=== PATIENT | female | born 1965 | race Caucasian/White ===

== ENCOUNTER 2017-08-30 06:56 | Emergency (ER) | payer OTHER ==
[~2017-08-30] VITALS: Ht 160 cm; Wt 65.0 kg
[2017-08-30 06:58] VITALS: BP 135/66; PULSE 95; RESP 16; TEMP 97.3; O2SAT 99
[2017-08-30] MEDS ORDERED: ORPHENADRINE INJ 60 MG/2 ML AMP IM ONE (07:30)
[2017-08-30] MEDS ORDERED: KETOROLAC TROMETHAMINE 60 MG/2 ML (IM) VIAL IM ONE (07:30)
[2017-08-30] MEDS ORDERED: ROBA500T PO (07:31)
[2017-08-30] MEDS ORDERED: IBUP-232 PO (07:31)
--- NOTE | 2017-08-30 07:31 | PD ---
HPI Chief Complaint: Back/ Neck Pain or Injury Time Seen by Provider: 07:14 Travel History International Travel<30 days: No Contact w/Intl Traveler<30days: No Traveled to known affect area: No History of Present Illness HPI 52-year-old female with history of low back pain for 20 years, presents to the emergency department for evaluation of exacerbation of pain over the last month. Patient states the pain is in her left lower back and radiates to her buttock and leg. She states it is a 10 out of 10, intermittently sharp, but constantly aching. She has not let her primary care provider know about this pain as it has been worsening over the last month. When she went to get out of bed today she states her left leg was severely painful and she was unable to stand on it. This resolved after about 45 minutes. The pain in her lower back still persisted she came to the emergency department. She denies any saddle paresthesia. She denies loss of bowel or bladder. Currently she is not having any weakness. She has no other symptoms to report. PFSH Past Medical History Heart Rhythm Problems: No Cardiac Catheterization: No Cardiovascular Problems: No High Cholesterol: No Congestive Heart Failure: No Diabetes: No Diminished Hearing: No Hypertension: No Neurologic: Yes (back and neck problems - numbness in rt arm) Myocardial Infarction: No Tetanus Vaccination: < 5 Years ?: Not Past Surgical History Appendectomy: Yes Section: Yes (X 1) Coronary Artery Bypass Graft: No Hysterectomy: Yes Social History Alcohol Use: Yes (rarly) Tobacco Use: No Substance Use: No Allergies-Medications (Allergen,Severity, Reaction): Coded Allergies: Fish Containing Products (Unverified Allergy, Severe, allergy tested injection site became red,swollen, 08/30/17) hydrocodone (Unverified Allergy, Mild, 08/30/17) sulfamethoxazole (Unverified Allergy, Mild, hives, 08/30/17) trimethoprim (Unverified Allergy, Mild, hives, 08/30/17) Reported Meds & Prescriptions Reported Meds & Active Scripts Active Ibuprofen 600 Mg Tab 600 Mg PO Q8H PRN Robaxin (Methocarbamol) 500 Mg Tab 500 Mg PO QID PRN Review of Systems Except as stated in HPI: all other systems reviewed are Neg Physical Exam Narrative GENERAL: Well-nourished female patient, ambulatory and in no acute distress SKIN: Focused skin assessment warm/dry. HEAD: Atraumatic. Normocephalic. EYES: Pupils equal and round. No scleral icterus. No injection or drainage. ENT: No nasal bleeding or discharge. Mucous membranes pink and moist. NECK: Trachea midline. No JVD. CARDIOVASCULAR: Regular rate and rhythm. No murmur appreciated. RESPIRATORY: No accessory muscle use. Clear to auscultation. Breath sounds equal bilaterally. GASTROINTESTINAL: Abdomen soft, non-tender, nondistended. Hepatic and splenic margins not palpable. MUSCULOSKELETAL: No obvious deformities. No clubbing. No cyanosis. No edema. 5. Strength equal bilateral lower extremities. Patient does have a positive straight leg on the left. Tenderness with palpation of the left sacroiliac joint. NEUROLOGICAL: Awake and alert. No obvious cranial nerve deficits. Motor grossly within normal limits. Normal speech. PSYCHIATRIC: Appropriate mood and affect; insight and judgment normal. Data Data Last Documented VS Vital Signs Date Time Temp Pulse Resp B/P (MAP) Pulse Ox O2 Delivery O2 Flow Rate FiO2 08/30/17 08:19 08/30/17 06:58 97.3 95 16 99 Room Air Orders Orders Ketorolac Inj (Toradol Inj) (08/30/17 07:30) Orphenadrine Inj (Norflex Inj) (08/30/17 07:30) Splint Or Brace Apply/Monitor (08/30/17 07:20) MDM Medical Decision Making Medical Screen Exam Complete: Yes Emergency Medical Condition: Yes Medical Record Reviewed: Yes Differential Diagnosis Lumbar strain versus discogenic pain versus radiculopathy Narrative Course 52-year-old female presents to emergency department for evaluation of low back pain. Patient appears without distress. Tenderness was to palpation over the left sacroiliac joint. Patient does have a positive straight leg on the left. No focal deficits or weakness. Patient is treated for pain and provided a quick draw back brace. She is comfortable in care, encouraged to contact her primary care provider today for follow-up, and return immediately with any acute worsening symptoms. Diagnosis Primary Impression: Sciatica of left side Referrals: Primary Care Physician Patient Instructions: General Instructions, Sciatica (ED) Additional Instructions: Ice and/or warm moist heat may help to alleviate symptoms Avoid activity that exacerbates pain Follow-up with a primary care provider Wear brace for support. Do not wear this at all times as it may weaken her core muscles, worsening her back pain Return immediately to the emergency department with any acute worsening symptoms Med/Other Pt SpecificInfo: Prescription(s) given Scripts Ibuprofen (Ibuprofen) 600 Mg Tab 600 MG PO Q8H Y for PAIN, #30 TAB 0 Refills Prov: Atiya Perez 08/30/17 Methocarbamol (Robaxin) 500 Mg Tab 500 MG PO QID Y for MUSCLE SPASM, #20 TAB 0 Refills Prov: Atiya Perez 08/30/17 Disposition: 01 DISCHARGE HOME Condition: Stable Atiya Perez Aug 30, 2017 07:31
== END 2017-08-30 08:22 | disposition home or self-care (01) ==
LOC: NEPK 06:56
DX: M54.42 Lumbago with sciatica, left side (principal)
CPT/HCPCS: 96372; 99284; J1885; J2360; L0627

== ENCOUNTER 2017-09-04 01:45 | Emergency (ER) | payer OTHER ==
[~2017-09-04] VITALS: Ht 160 cm; Wt 68.0 kg
[~2017-09-04 01:45] MED LIST: IBUP-232 PO; ROBA500T PO
[2017-09-04 01:47] VITALS: BP 142/79; PULSE 99; RESP 18; TEMP 98.3; O2SAT 100
[2017-09-04] MEDS ORDERED: SODIUM CHLORID 0.9% 500 ML INJ 500 ML IV ONE (02:30)
[2017-09-04] MEDS ORDERED: KETOROLAC TROMETHAMINE 30 MG/ML (IVP) VIAL IV PUSH ONE (02:30)
[2017-09-04] MEDS ORDERED: HYDROmorphone HCL PF 1 MG/ML VIAL IV PUSH ONE (02:30)
[2017-09-04] MEDS ORDERED: ONDANSETRON HCL 4 MG/2 ML VIAL IV PUSH ONE (02:30)
--- NOTE | 2017-09-04 02:33 | PD ---
HPI Chief Complaint: Pain: Acute or Chronic Time Seen by Provider: 02:14 Travel History International Travel<30 days: No Contact w/Intl Traveler<30days: No Traveled to known affect area: No History of Present Illness HPI The patient is a 52-year-old female who presents to the emergency department for pain that starts over the left gluteal area and radiates down the left leg. The patient states the pain started on Wednesday, she was evaluated in the emergency department and diagnosed with sciatica. The patient was administered pain medications via IM and her symptoms improved for 24 hours. However, her symptoms then return and she was seen by her primary physician who also gave her another injection of medications. The patient's symptoms improved , however, return 24 hours later. The patient then had massage therapy which improved her symptoms, however, her symptoms have returned. The patient has been taking a muscle relaxer Robaxin without any alleviation of her symptoms. The pain is located over the left gluteal area and radiates down the left leg. The patient was seen once again at [facility] urgent care where she had an x-ray which is apparently unremarkable per her report and was scheduled for an outpatient MRI. She does have a history of neuropathy and fibromyalgia, states that she's been in pain for the last 18 years. She also states occasionally her hands will tingling go numb when she has this pain. She denies any urinary incontinence. Symptoms are mild to moderate, there are no known exacerbating factors, alleviated with IM injections. PFSH Past Medical History Heart Rhythm Problems: No Cardiac Catheterization: No Cardiovascular Problems: No High Cholesterol: No Congestive Heart Failure: No Diabetes: No Diminished Hearing: No Hypertension: No Neurologic: Yes (back and neck problems - numbness in rt arm) Myocardial Infarction: No ?: Not Past Surgical History Appendectomy: Yes Section: Yes (X 1) Coronary Artery Bypass Graft: No Hysterectomy: Yes Family History Family Myocardial Infarction: No Social History Alcohol Use: Yes (rarely) Tobacco Use: No Substance Use: No Allergies-Medications (Allergen,Severity, Reaction): Coded Allergies: Fish Containing Products (Unverified Allergy, Severe, allergy tested injection site became red,swollen, 09/04/17) hydrocodone (Unverified Allergy, Mild, 09/04/17) sulfamethoxazole (Unverified Allergy, Mild, hives, 09/04/17) trimethoprim (Unverified Allergy, Mild, hives, 09/04/17) morphine (Verified Adverse Reaction, Severe, Hives, 09/04/17) Reported Meds & Prescriptions Reported Meds & Active Scripts Active Ibuprofen 600 Mg Tab 600 Mg PO Q8H PRN Robaxin (Methocarbamol) 500 Mg Tab 500 Mg PO QID PRN Review of Systems Except as stated in HPI: all other systems reviewed are Neg General / Constitutional: No: Fever Cardiovascular: No: Chest Pain or Discomfort Respiratory: No: Shortness of Breath Gastrointestinal: No: Nausea, Vomiting Genitourinary: No: Incontinence Musculoskeletal: Positive: Pain Neurologic: Positive: Paresthesia Physical Exam Narrative GENERAL: Awake, alert, nontoxic-appearing 52-year-old female who appears her stated age and is in no acute respiratory distress. SKIN: Focused skin assessment warm/dry. HEAD: Atraumatic. Normocephalic. EYES: Pupils equal and round. No scleral icterus. No injection or drainage. ENT: No nasal bleeding or discharge. Mucous membranes pink and moist. NECK: Trachea midline. No JVD. MUSCULOSKELETAL: Patient has mild tenderness over the left gluteal area that reproduces her symptoms. Positive straight leg at 60. No pain with internal/ external rotation of the hip. Positive left dorsalis pedal pulse. Plantar flexion is 5 out of 5. Extension of the knee is 5 out of 5, flexion of the left hip is 5 out of 5. The patient is able to ambulate. NEUROLOGICAL: Awake and alert. No obvious cranial nerve deficits. Motor grossly within normal limits. Normal speech. Sensation is intact to left lower extremity to soft touch. PSYCHIATRIC: Appropriate mood and affect; insight and judgment normal. Data Data Last Documented VS Vital Signs Date Time Temp Pulse Resp B/P (MAP) Pulse Ox O2 Delivery O2 Flow Rate FiO2 09/04/17 01:47 98.3 99 18 142/79 (100) 100 Room Air Orders Orders Hydromorphone Pf Inj (Dilaudid Pf Inj) (09/04/17 02:30) Ondansetron Inj (Zofran Inj) (09/04/17 02:30) Ketorolac Inj (Toradol Inj) (09/04/17 02:30) Sodium Chlorid 0.9% 500 Ml Inj (Ns 500 M (09/04/17 02:30) Cyclobenzaprine (Flexeril) (09/04/17 03:30) Acetamin-Hydrocod 325-5 Mg ([place] 5-325 (09/04/17 03:30) MDM Medical Decision Making Medical Screen Exam Complete: Yes Emergency Medical Condition: Yes Medical Record Reviewed: Yes Differential Diagnosis Differential diagnosis includes sciatica, herniated disc with radiculopathy, spinal stenosis, neuropathy, myopathy, muscle strain. 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 The patient was reevaluated, her pain had improved. The patient then was administered Five Points and Flexeril. The patient does not have a true allergy to Five Points, states she has nausea. Therefore, patient will be discharged home with nausea medicine and we will change her muscle relaxer from her current one to Flexeril, which she states works for her. The patient is advised to follow-up with her primary physician as well. She will be placed on Medrol Dosepak. She is stable for outpatient follow-up. Diagnosis Primary Impression: Sciatica Qualified Codes: M54.32 - Sciatica, left side Patient Instructions: General Instructions Additional Instructions: Medications as directed. Follow-up with your primary physician. Stop your current muscle relaxer and take Flexeril as directed. Return if symptoms worsen or progress. Med/Other Pt SpecificInfo: Prescription(s) given Scripts Ondansetron Odt (Zofran Odt) 4 Mg Tab 4 MG SL Q6HR Y for Nausea/Vomiting, #10 TAB 0 Refills Prov: Marky Chatman MD 09/04/17 Hydrocodone-Acetaminophen (Five [place]) 5-325 mg Tab 1 TAB PO Q6H Y for PAIN, #20 TAB 0 Refills Prov: Marky Chatman MD 09/04/17 Cyclobenzaprine (Flexeril) 10 Mg Tab 10 MG PO TID for Muscle Spasm, #30 TAB 0 Refills Prov: Marky Chatman MD 09/04/17 Methylprednisolone Dosepak (Medrol Dosepak) 4 Mg Dspk 4 MG PO DIRECTED, #1 DSPK 0 Refills Per Pharmacist direction Prov: Marky Chatman MD 09/04/17 Disposition: 01 DISCHARGE HOME Condition: Stable Marky Chatman MD Sep 04, 2017 02:33
[2017-09-04] MEDS ORDERED: ACETAMINOPHEN/HYDROcodone 325 MG/5 MG TAB PO ONE (03:30)
[2017-09-04] MEDS ORDERED: CYCLOBENZAPRINE HCL 10 MG TAB PO ONE (03:30)
[2017-09-04] MEDS ORDERED: NORC5TAB PO (04:05)
[2017-09-04] MEDS ORDERED: CYCL1TAB29 PO (04:05)
[2017-09-04] MEDS ORDERED: ZOFR4TAB3 SL (04:05)
[2017-09-04] MEDS ORDERED: MEDR4PAK PO (04:05)
[2017-09-04 04:09] VITALS: BP 111/60; PULSE 73; RESP 18; O2SAT 98
== END 2017-09-04 04:27 | disposition home or self-care (01) ==
LOC: NEPE 01:45
DX: M54.32 Sciatica, left side (principal)
CPT/HCPCS: 96361; 96374; 96375; 99284; J1170; J1885; J2405; J7040

== ENCOUNTER 2017-11-25 14:45 | Observation (INO) | payer OTHER ==
[~2017-11-25 14:45] MED LIST changes: +CYCL10TA PO; +MEDR4PAK PO; +NORC5TAB PO; +ZOFR4TAB3 SL
[2017-11-25 14:48] VITALS: BP 120/69; PULSE 114; RESP 16; TEMP 97.7; O2SAT 99
[2017-11-25 16:56] LABS: AUTOMATED NEUTROPHIL # 6.2 TH/MM3 (1.8-7.7); BASOPHIL % 0.4 % (0.0-2.0); EOSINOPHIL # 0.1 TH/MM3 (0-0.4); EOSINOPHIL % 0.8 % (0.0-4.0); HEMATOCRIT 43.1 % (35.0-46.0); HEMOGLOBIN 14.7 GM/DL (11.6-15.3); LYMPH % 18.2 % (9.0-44.0); LYMPHOCYTE # 1.6 TH/MM3 (1.0-4.8); MEAN CELL VOLUME 87.2 FL (80.0-100.0); MEAN CORPUSCULAR HEMOGLOBIN 29.7 PG (27.0-34.0); MEAN CORPUSCULAR HGB CONC 34.1 % (32.0-36.0); MEAN PLATELET VOLUME 9.7 FL (7.0-11.0); MONO % 7.5 % (0.0-8.0); MONOCYTE # 0.6 TH/MM3 (0-0.9); NEUT % 73.1 % (16.0-70.0); PLATELET COUNT 239 TH/MM3 (150-450); RED BLOOD COUNT 4.94 MIL/MM3 (4.00-5.30); RED CELL DISTRIBUTION WIDTH 13.1 % (11.6-17.2); WHITE BLOOD COUNT 8.5 TH/MM3 (4.0-11.0)
[2017-11-25 17:11] LABS: BACTERIA, URINE RARE /hpf; BILIRUBIN, URINE NEG (NEG); BLOOD, URINE NEG (NEG); GLUCOSE,URINE NEG (NEG); KETONE, URINE 40 mg/dL (NEG); NITRITE,URINE NEG (NEG); PH, URINE 6.5 (5.0-8.5); SQUAMOUS EPITHELIAL CELL URINE 3 /hpf (0-5); TRANSITIONAL EPI CELLS, URINE <1 /hpf; URINE COLOR LIGHT-YELLOW (YELLW/STRAW); URINE LEUKOCYTE ESTERASE LARGE (NEG)
--- NOTE | 2017-11-25 17:20 | PD ---
HPI Chief Complaint: chest pain Time Seen by Provider: 17:03 Travel History International Travel<30 days: No Contact w/Intl Traveler<30days: No Traveled to known affect area: No History of Present Illness HPI 52yo F with PMH of fibromyalgia presents to the ED with c/o chest pain around 1: 30pm today. Started with lower abdominal cramping, then tingling in bilateral fingers and around the mouth and then it came up to mid chest. Said it was pressure like and associated with some difficulty breathing. Lasted about 3-5 minutes. Nonradiating, moderate severity. No exacerbating or alleviating factor. She was sitting down when it started and went away on its own. Denies any fever, cough, nausea, diaphoresis, vomiting, focal weakness or numbness. Pt is currently asymptomatic. Said her father had his first heart attack at 46yo. Denies history of cig smoking or drug use. PFSH Past Medical History Heart Rhythm Problems: No Cardiac Catheterization: No Cardiovascular Problems: No High Cholesterol: No Congestive Heart Failure: No Diabetes: No Diminished Hearing: No Fibromyalgia: Yes Heparin Induced Thrombocytopen: No Hypertension: No Neurologic: Yes (back and neck problems - numbness in rt arm, neuropathy) Myocardial Infarction: No ?: Not Past Surgical History Appendectomy: Yes Section: Yes (X 1) Coronary Artery Bypass Graft: No Hysterectomy: Yes Social History Alcohol Use: Yes (rarely) Tobacco Use: No Substance Use: No Allergies-Medications (Allergen,Severity, Reaction): Coded Allergies: Fish Containing Products (Unverified Allergy, Severe, allergy tested injection site became red,swollen, 11/25/17) hydrocodone (Unverified Allergy, Mild, 11/25/17) sulfamethoxazole (Unverified Allergy, Mild, hives, 11/25/17) trimethoprim (Unverified Allergy, Mild, hives, 11/25/17) morphine (Verified Adverse Reaction, Severe, Hives, 11/25/17) Reported Meds & Prescriptions Reported Meds & Active Scripts Active [place] (Hydrocodone-Acetaminophen) 5-325 mg Tab 1 Tab PO Q6H PRN Flexeril (Cyclobenzaprine HCl) 10 Mg Tab 10 Mg PO TID Ibuprofen 600 Mg Tab 600 Mg PO Q8H PRN Review of Systems Except as stated in HPI: all other systems reviewed are Neg Physical Exam Narrative GENERAL: 52yo F not in distress. SKIN: Focused skin assessment warm/dry. HEAD: Atraumatic. Normocephalic. CARDIOVASCULAR: Regular rate and rhythm. No murmur appreciated. RESPIRATORY: No accessory muscle use. Clear to auscultation. Breath sounds equal bilaterally. GASTROINTESTINAL: Abdomen soft, non-tender, nondistended. MUSCULOSKELETAL: No obvious deformities. No clubbing. No cyanosis. No edema. NEUROLOGICAL: Awake and alert. No obvious cranial nerve deficits. Motor grossly within normal limits. Normal speech. PSYCHIATRIC: Appropriate mood and affect; insight and judgment normal. Data Data Last Documented VS Vital Signs Date Time Temp Pulse Resp B/P (MAP) Pulse Ox O2 Delivery O2 Flow Rate FiO2 11/25/17 14:48 97.7 114 16 120/69 (86) 99 Orders Orders Complete Blood Count With Diff (11/25/17 15:11) Comprehensive Metabolic Panel (11/25/17 15:11) Lipase (11/25/17 15:11) Urinalysis - C+S If Indicated (11/25/17 15:11) Ckmb (Isoenzyme) Profile (11/25/17 15:11) Troponin I (11/25/17 15:11) Electrocardiogram (11/25/17 ) Chest, Single Ap (11/25/17 ) Aspirin (Aspirin) (11/25/17 17:30) Admit Order (Ed Use Only) (11/25/17 19:13) Activity Bed Rest With Brp (11/25/17 19:13) Vital Signs (Adult) Q4H (11/25/17 19:13) Cardiac Rhythm .As Directed (11/25/17 19:13) Notify Dr: Other .PRN (11/25/17 19:13) Notify Dr. Parameters (11/25/17 19:13) Resp Oxygen Nasal Cannula (11/25/17 ) Ckmb (Isoenzyme) Profile (11/25/17 19:13) Ckmb (Isoenzyme) Profile (11/25/17 22:13) Troponin I (11/25/17 19:13) Troponin I (11/25/17 22:13) Electrocardiogram (11/25/17 19:13) Electrocardiogram (11/25/17 22:13) ^ Obtain (11/25/17 19:13) Sodium Chloride 0.9% Flush (Ns Flush) (11/25/17 19:15) Sodium Chloride 0.9% Flush (Ns Flush) (11/25/17 21:00) Lan Engineer / Telemetry LISSETH.Q8H (11/25/17 19:13) Labs Laboratory Tests Test 11/25/17 16:20 White Blood Count 8.5 TH/MM3 Red Blood Count 4.94 MIL/MM3 Hemoglobin 14.7 GM/DL Hematocrit 43.1 % Mean Corpuscular Volume 87.2 FL Mean Corpuscular Hemoglobin 29.7 PG Mean Corpuscular Hemoglobin Concent 34.1 % Red Cell Distribution Width 13.1 % Platelet Count 239 TH/MM3 Mean Platelet Volume 9.7 FL Neutrophils (%) (Auto) 73.1 % Lymphocytes (%) (Auto) 18.2 % Monocytes (%) (Auto) 7.5 % Eosinophils (%) (Auto) 0.8 % Basophils (%) (Auto) 0.4 % Neutrophils # (Auto) 6.2 TH/MM3 Lymphocytes # (Auto) 1.6 TH/MM3 Monocytes # (Auto) 0.6 TH/MM3 Eosinophils # (Auto) 0.1 TH/MM3 Basophils # (Auto) 0.0 TH/MM3 CBC Comment DIFF FINAL Differential Comment Urine Color LIGHT-YELLOW Urine Turbidity CLEAR Urine pH 6.5 Urine Specific [place] 1.007 Urine Protein NEG mg/dL Urine Glucose (UA) NEG mg/dL Urine Ketones 40 mg/dL Urine Occult Blood NEG Urine Nitrite NEG Urine Bilirubin NEG Urine Urobilinogen LESS THAN 2.0 MG/DL Urine Leukocyte Esterase LARGE Urine WBC 7 /hpf Urine Squamous Epithelial Cells 3 /hpf Urine Transitional Epithelial Cells <1 /hpf Urine Bacteria RARE /hpf Microscopic Urinalysis Comment CULT NOT INDICATED Blood Urea Nitrogen 14 MG/DL Creatinine 0.80 MG/DL Random Glucose 108 MG/DL Total Protein 8.4 GM/DL Albumin 4.6 GM/DL Calcium Level 9.6 MG/DL Alkaline Phosphatase 116 U/L Aspartate Amino Transf (AST/SGOT) 24 U/L Alanine Aminotransferase (ALT/SGPT) 26 U/L Total Bilirubin 0.8 MG/DL Sodium Level 140 MEQ/L Potassium Level 3.8 MEQ/L Chloride Level 104 MEQ/L Carbon Dioxide Level 25.1 MEQ/L Anion Gap 11 MEQ/L Estimat Glomerular Filtration Rate 75 ML/MIN Total Creatine Kinase 80 U/L Troponin I LESS THAN 0.02 NG/ML Lipase 175 U/L MDM Medical Decision Making Medical Screen Exam Complete: Yes Emergency Medical Condition: Yes Interpretation(s) EKG: NSR 85bpm. Normal axis. No ST segment elevation or depression. Differential Diagnosis Anxiety vs. ACS vs. GERD vs. musculoskeletal pain Narrative Course 52yo F here with atypical chest pain. Said she has had tingling in fingers and around mouth before but never the chest pain so she decide to come to the ED for that. Pt has no abdominal pain now and abdomen is soft, nontender. Did not take any medication. 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 Labs reviewed, no leukocytosis. Troponin negative. CXR negative. UA showed large leukocyte but WBC only 7 and culture not indicated. Pt has no urinary complaints so wont treat at this time. Pt given aspirin. Even though chest pain is atypical, she is 52yo and has family history of early IN. Will admit for serial EKG and cardiac enzymes. Diagnosis Primary Impression: Chest pain Qualified Codes: R07.9 - Chest pain, unspecified Admitting Information Admitting Physician Requests: Ricarda Dykes DO Nov 25, 2017 17:20
[2017-11-25] MEDS ORDERED: ASPIRIN 325 MG TAB PO ONE (17:30)
--- NOTE | 2017-11-25 17:34 | RADRPT ---
EXAM DATE/TIME: 11/25/2017 17:23 [facility] COMPARISON: No previous studies available for comparison. INDICATIONS : Chest pain and cramping. MEDICAL HISTORY : None. SURGICAL HISTORY : Appendectomy. section. Hysterectomy. ENCOUNTER: Initial ACUITY: 1 day PAIN SCORE: 5/10 LOCATION: Bilateral chest FINDINGS: A single view of the chest demonstrates the lungs to be symmetrically aerated without evidence of mas s, infiltrate or effusion. The cardiomediastinal contours are unremarkable. Osseous structures are intact. CONCLUSION: 1. No acute cardiopulmonary disease. Familia Rush MD on November 25, 2017 at 17:32 Board Certified Radiologist. This report was verified electronically.
[2017-11-25 17:47] LABS: ALBUMIN 4.6 GM/DL (3.4-5.0); ALKALINE PHOSPHATASE 116 U/L (45-117); ALT (GPT) 26 U/L (10-53); AST (GOT) 24 U/L (15-37); BICARBONATE 25.1 MEQ/L (21.0-32.0); BLOOD UREA NITROGEN 14 MG/DL (7-18); CALCIUM 9.6 MG/DL (8.5-10.1); CHLORIDE 104 MEQ/L (98-107); GLOMERULAR FILTRATION RATE 75 ML/MIN (>89); GLUCOSE,RANDOM 108 MG/DL (74-106); LIPASE 175 U/L (73-393); SODIUM (NA) 140 MEQ/L (136-145); TOTAL BILIRUBIN ADULT 0.8 MG/DL (0.2-1.0); TOTAL PROTEIN 8.4 GM/DL (6.4-8.2); TROPONIN I LESS THAN 0.02 NG/ML (0.02-0.05)
[2017-11-25] MEDS ORDERED: SODIUM CHLORIDE 0.9% FLUSH 10 ML FLUSH IV FLUSH PRN (19:15)
[2017-11-25 19:31] VITALS: BP 119/59; PULSE 97; RESP 20; O2SAT 100
[2017-11-25 19:53] VITALS: O2SAT 98
[2017-11-25 20:47] LABS: TROPONIN I LESS THAN 0.02 NG/ML (0.02-0.05)
[2017-11-25] MEDS: SODIUM CHLORIDE 0.9% FLUSH 10 ML FLUSH IV FLUSH SCH (21:34)
[2017-11-25 21:39] VITALS: PULSE 97
[2017-11-25 23:34] VITALS: BP 108/53; PULSE 100; RESP 18; TEMP 98.1; O2SAT 98
[2017-11-25 23:55] LABS: TROPONIN I LESS THAN 0.02 NG/ML (0.02-0.05)
[2017-11-26] VITALS (7 sets, daily range): BP systolic 94–113; BP diastolic 50–60; PULSE 65–87; RESP 18–20; TEMP 96.9–98.2; O2SAT 96–97
[2017-11-26] MEDS ORDERED: NITROGLYCERIN 0.4 MG SL 25 TABS/BTL SL PRN (07:00)
[2017-11-26] MEDS ORDERED: ACETAMINOPHEN 500 MG CPLT PO PRN (07:00)
[2017-11-26] MEDS ORDERED: ONDANSETRON HCL 4 MG/2 ML VIAL IV PUSH PRN (07:00)
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
[2017-11-26] MEDS ORDERED: ASPIRIN 325 MG TAB PO SCH (09:00)
[2017-11-26] MEDS: SODIUM CHLORIDE 0.9% FLUSH 10 ML FLUSH IV FLUSH SCH (09:00)
[2017-11-26] MEDS ORDERED: REGADENOSON INJ 0.4 MG/5 ML SYR ONE (10:42)
--- NOTE | 2017-11-26 11:53 | RADRPT ---
EXAM DATE/TIME: 11/26/2017 10:14 [facility] COMPARISON: No previous studies available for comparison. INDICATIONS : Abdominal cramping with tingling in the fingers that moved to substernal chest with dyspnea. Angina. DOSE: 27.3 mCi Tc99m Myoview at stress. 8.5 mCi Tc99m Myoview at rest. 0.4 mg Lexiscan STRESS SYMPTOMS: Weird feeling. EJECTION FRACTION: 68% MEDICAL HISTORY : Fibromyagia. SURGICAL HISTORY : Appendectomy. Hysterectomy. section. ENCOUNTER: Initial ACUITY: 1 day PAIN SCALE: 5/10 LOCATION: Substernal chest TECHNIQUE: The patient underwent pharmacologic stress with infusion of prescribed dose. Continuous ECG tracing was monitored during stress. Gated SPECT imaging was performed after stress and conventional SPECT i maging was performed at rest. The examination was performed on a SPECT/CT scanner, both attenuation and non-corrected datasets were reviewed. FINDINGS: DISTRIBUTION: The maximum perfused segment at stress is in the lateral wall. PERFUSION STUDY: The pattern of perfusion at stress is within normal limits with regional variations in perfusion with in 35%. No change in the pattern perfusion between stress and rest. There is a moderate amount of bow el activity adjacent to the apical inferior wall the rest study. The summed stress score is zero. GATED STUDY: There is intact wall motion and thickening without hypokinetic or dyskinetic segments. CONCLUSION: 1. No evidence of stress-induced ischemia. 2. Intact wall motion with 68% ejection fraction. RISK CATEGORY: Low (<1% Annual Mortality Rate) Ramy Adams MD on November 26, 2017 at 11:46 Board Certified Radiologist. This report was verified electronically.
--- NOTE | 2017-11-26 12:30 | HHI.DCPOC ---
Discharge Care Plan Diagnosis: (1) Atypical chest pain Goals to Promote Your Health * To prevent worsening of your condition and complications * To maintain your health at the optimal level Directions to Meet Your Goals Take your medications as prescribed Follow your dietary instruction Follow activity as directed Keep your appointments as scheduled Take your immunizations and boosters as scheduled If your symptoms worsen call your PCP, if no PCP go to Urgent Care Center or Emergency Room Smoking is Dangerous to Your Health. Avoid second hand smoke Call the 24-hour hour crisis hotline for domestic abuse at Nataliia Costello Nov 26, 2017 12:30
--- NOTE | 2017-11-26 14:10 | EKG ---
Date Performed: 11/25/2017 Time Performed: 17:26:03 PTAGE: 52 years EKG: Sinus rhythm NORMAL ECG Since PREVIOUS TRACING , no significant change noted DOCTOR: Anamaria Dewitt Interpretating Date/Time 11/26/2017 14:09:33
--- NOTE | 2017-11-26 14:11 | EKG ---
Date Performed: 11/25/2017 Time Performed: 20:08:40 PTAGE: 52 years EKG: Sinus rhythm NORMAL ECG Since PREVIOUS TRACING , no significant change noted PREVIOUS TRACIN11/25/2017 17.26 DOCTOR: Anamaria Dewitt Interpretating Date/Time 11/26/2017 14:10:06
--- NOTE | 2017-11-26 14:12 | EKG ---
Date Performed: 11/25/2017 Time Performed: 23:39:55 PTAGE: 52 years EKG: Sinus rhythm NORMAL ECG Since PREVIOUS TRACING , no significant change noted PREVIOUS TRACIN11/25/2017 20.08 DOCTOR: Anamaria Dewitt Interpretating Date/Time 11/26/2017 14:11:01
--- NOTE | 2017-11-26 14:14 | TR ---
Date Performed: 11/26/2017 Time Performed: 10:32:31 DOCTOR: Anamaria Dewitt DRUG LIST: CLINICAL HISTORY: REASON FOR TEST: CHEST PAIN REASON FOR ENDING: OBSERVATION: CONCLUSION: Lexiscan stress test was performed under standard four minute protocol. Radionuclid e was injected one minute prior to ending the test. No electrocardiographic abormalities were present to suggest ischemia. Nuclear imaging and interpretation are pending. COMMENTS:
== END 2017-11-26 13:32 | disposition home or self-care (01) ==
LOC: NEPD 14:45 → NEDA 19:15 → NEPFCDU 20:18
PROVIDERS: ADMIT Internal Medicine Interventional Cardiology; ATTEND Internal Medicine Interventional Cardiology
DX: R07.9 Chest pain, unspecified (principal); M79.7 Fibromyalgia; M54.16 Radiculopathy, lumbar region; M54.9 Dorsalgia, unspecified; G89.29 Other chronic pain; Z90.710 Acquired absence of both cervix and uterus; Z82.49 Family history of ischemic heart disease and other diseases of the circulatory system
CPT/HCPCS: 71010; 78452; 80053; 81001; 82550; 82552; 83690; 84484; 85025; 93005; 93017; 99285; A9502; G0378; J2785